=== PATIENT | female | born 1940 ===

== ENCOUNTER 2022-08-19 14:14 | Outpatient (OUT) | payer MEDICARE, SELFPAY | END 2022-08-19 14:15 | LOC: WC 14:14 | PROVIDERS: PCP Physician Assistant; Visit Provider Physician Assistant | DX: L89.620 Pressure ulcer of left heel, unstageable (principal) | CPT/HCPCS: 99212; A6213; G0463 ==

== ENCOUNTER 2022-09-16 10:13 | Outpatient (OUT) | payer MEDICARE, SELFPAY | END 2022-09-16 10:14 | disposition home or self-care (01) | LOC: WC 10:13 | PROVIDERS: PCP Physician Assistant; Visit Provider Physician Assistant | DX: L89.620 Pressure ulcer of left heel, unstageable (principal) | CPT/HCPCS: A6213; G0463 ==

== ENCOUNTER 2022-10-08 13:05 | Outpatient (OUT) | payer MEDICARE, SELFPAY | END 2022-10-08 13:06 | disposition home or self-care (01) | LOC: WC 13:05 | PROVIDERS: PCP Physician Assistant; Visit Provider Podiatrist Foot & Ankle Surgery | DX: L89.620 Pressure ulcer of left heel, unstageable (principal) | CPT/HCPCS: A6213; G0463 ==

== ENCOUNTER 2022-11-04 09:53 | Outpatient (OUT) | payer MEDICARE, SELFPAY | END 2022-11-04 09:54 | disposition home or self-care (01) | LOC: WC 09:53 | PROVIDERS: PCP Physician Assistant; Visit Provider Physician Assistant | DX: L89.620 Pressure ulcer of left heel, unstageable (principal) | CPT/HCPCS: A6213; G0463 ==